=== PATIENT | male | born 1970 | race Two or more races ===

== ENCOUNTER 2020-01-01 17:48 | Emergency (ER) | payer OTHER ==
[~2020-01-01] VITALS: Ht 165.1 cm; Wt 72.7 kg
--- NOTE | 2020-01-01 18:18 | Emergency Department Note ---
History of Present Illnes History of Present Illness History of Present Illness This is a 49 year old Other male . 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 Onset (how long ago): week(s) (3) Onset quality: gradual Timing of current episode: intermittent Progression: waxing and waning Chronicity: new Context: Denies recent illness, Denies recent surgery, Denies recent immob ilization, Denies recent travel, Denies trauma/injury, Denies new medications, Denies hx of DVT/PE, Denies non-compliance w/ medications, Denies other Relieving factors: none Exacerbating factors: other (sitting) Associated symptoms: Denies denies other symptoms, Denies confusion, Denies chest pain, Denies cough, Denies diaphoresis, Denies fever/chills, Denies headaches, Denies loss of appetite, Denies malaise, Denies nausea/vomiting, Denies rash, Denies seizure, Denies shortness of breath, Denies syncope, Denies weakness, Denies other Past Medical/Family History Physician Review I have reviewed the patient's past medical and family history. Any updates have been documented here. Past Medical History Recent Fever: No Clinical Suspicion of Infectio: No New/Unexplained Change in Ment: No Past Medical History: None Past Surgical History: None Social History Smoking Cessation: Never Smoker Alcohol Use: None Any Illegal Drug Use: No Review of Systems Review of Systems Constitutional: Denies fever Musculoskeletal: Reports as per HPI, Reports back pain Neurological: Denies weakness Review of other systems: All other systems negative Physical Exam Related Data Allergies: Coded Allergies: No Known Drug Allergies (Verified Allergy, Unknown, 01/01/20) Vital signs reviewed: Yes Physical Exam CONSTITUTIONAL Constitutional: Present well-developed, Present well-nourished HENT HENT: Present normocephalic EYES Eyes: Reports conjunctivae normal NECK Neck: Present supple PULMONARY Pulmonary: Present breath sounds normal CARDIOVASCULAR Cardiovascular: Present regular rhythm GASTROINTESTINAL Abdominal: Present soft GENITOURINARY SKIN Skin: Present warm MUSCULOSKELETAL Musculoskeletal: Present ROM normal NEUROLOGICAL Neurological: Present oriented x 3, Present DTRs normal, Present no gross motor or sensory deficits; Absent sensory deficit, Absent abnormal gait, Absent weakness PSYCHOLOGICAL Psychological: Present mood/affect normal Results Imaging Imaging results reviewed: Yes Impressions Procedure: HOPD/L SPINE 2-3 VEWS - HOPD Exam Date: 01/01/20 Exam Time: 1854 REPORT STATUS: Signed EXAM: Lumbar spine 3 views INDICATION: Pain COMPARISON: None FINDINGS: There are the usual 5 nonrib bearing lumbar vertebral bodies. Normal lumbar lordosis. No listhesis. No vertebral body height loss. No scoliosis. Minimal intervertebral disc height loss at L1-L2 and L2-L3. Mild L4-L5 and L5-S1 facet arthrosis. Large amount of bowel gas. No concerning soft tissue abnormality. IMPRESSION: No acute radiographic abnormality of the lumbar spine. Signed by: Kari Garcia MD on 01/01/2020 6:58 PM Dictated By: KARI GARCIA MD 56 Transcribed By: FAITH on 01/01/201857 COPY TO: WINSTON ATKINSON MD~ Clinical Decision Tools HEART Score HEART Score: HEART Score Response (Comments) Value History Slightly suspicious 0 EKG Non specific repolarization 1 Age 45 - 65 1 Risk factors 1 or 2 risk factors 1 Troponin 1-3x normal limit Total 3 Assessment & Plan Medical Decision Making MDM sciatica, radiculopathy, MSK, DDD, spondylolysis, spondylothisthesis Assessment & Plan Final Impression: (1) Sciatic leg pain Depart Disposition: HOME, SELF-senior care Meds Active Scripts Cyclobenzaprine Hcl (FLEXERIL) 5 Mg Tablet, 10 MG PO TID for 5 Days, #15 Prov:WINSTON ATKINSON MD 01/01/20 Naproxen (NAPROSYN) 500 Mg Tablet, 500 MG PO BID for 7 Days, #15 TAB Prov:WINSTON ATKINSON MD 01/01/20 Prednisone (PREDNISONE) 20 Mg Tab, 20 MG PO TID for 5 Days, #15 Prov:WINSTON ATKINSON MD 01/01/20 WINSTON ATKINSON MD Jan 01, 2020 18:18
[2020-01-01] MEDS ORDERED: PREDNISONE20 MG PO (18:42)
[2020-01-01] MEDS ORDERED: CYCLOBENZAPRINE5 MG PO (18:42)
[2020-01-01] MEDS ORDERED: NAPROSYN500 MG PO (18:42)
[2020-01-01] MEDS ORDERED: DEXAMETHASONE SOD PHOS 10 MG/1 ML VIAL IM ONE (19:00)
--- NOTE | 2020-01-01 19:01 | Diagnostic Imaging Report ---
EXAM: Lumbar spine 3 views INDICATION: Pain COMPARISON: None FINDINGS: There are the usual 5 nonrib bearing lumbar vertebral bodies. Normal lumbar lordosis. No listhesis. No vertebral body height loss. No scoliosis. Minimal intervertebral disc height loss at L1-L2 and L2-L3. Mild L4-L5 and L5-S1 facet arthrosis. Large amount of bowel gas. No concerning soft tissue abnormality. IMPRESSION: No acute radiographic abnormality of the lumbar spine. Signed by: Pawel Desai MD on 01/01/2020 6:58 PM
--- NOTE | 2020-01-01 19:04 | NUR ---
IM DECADRON TO L-GLUT. PT TOLERATED WELL
[2020-01-01 19:20] VITALS: BP 155/91
== END 2020-01-01 19:20 | disposition home or self-care (01) ==
LOC: FSED 17:48
DX: M54.42 Lumbago with sciatica, left side (principal)
CPT/HCPCS: 72100; 99283; J1100